=== PATIENT | female | born 1980 | race African-American/Black ===

== ENCOUNTER 2019-05-23 17:14 | Emergency (ER) | payer OTHER ==
[~2019-05-23] VITALS: Ht 170.2 cm; Wt 72.6 kg
[~2019-05-23 17:14] MED LIST: ADDERALL 10 MG10 MG; AMITRIPTYLINE H10 M1 PO; AMOXICILLIN 25250 M2 OR; AMOXICILLIN 50500 MG PO; DOXYCYCLINE 10100 MG PO; FLAGYL500 MG PO; FLEXERIL PO; HYDROCODON-ACE1 EAC5 PO; HYDROCODON-ACE1 EAC7 PO; IBUPROFEN 800800 M1 PO; LITHIUM CARBON150 MG PO; MEDROLDOSEPACK PO; MONONESSA1 EACH; NOHOMEMEDICATIONS; NORCO 5-325 TA1 EACH PO; NORFLEX100 MG PO; PERCOCET 5-3251 EACH; PREDNISONE 20 M20 M1 PO; ROBAXIN500 MG PO; SEROQUEL 50 MG50 M1; SEROQUEL XR150 MG PO; STRATTERA25 MG; STRATTERA60 MG PO; XANAX 0.5 MG0.5 M1 PO; XANAX XR1 MG PO
[2019-05-23] MEDS ORDERED: LIDOCAINE VISC100 ML SWISH&SPIT (17:27)
[2019-05-23] MEDS ORDERED: AMOXICILLIN 50500 M1 PO (17:27)
[2019-05-23 17:48] VITALS: BP 136/84
== END 2019-05-23 17:49 | disposition home or self-care (01) ==
LOC: M.ERS 17:14
DX: K04.7 Periapical abscess without sinus (principal); K00.7 Teething syndrome; Z90.49 Acquired absence of other specified parts of digestive tract

== ENCOUNTER 2020-08-26 11:45 | Emergency (ER) | payer OTHER ==
[~2020-08-26] VITALS: Ht 170.2 cm; Wt 70.3 kg
[~2020-08-26 11:45] MED LIST changes: +AMOXICILLIN 50500 M1 PO; +LIDOCAINE VISC100 ML SWISH&SPIT
[2020-08-26 12:22] VITALS: BP 133/98
== END 2020-08-26 12:23 | disposition home or self-care (01) ==
LOC: M.ERS 11:45
DX: Z20.828 Contact with and (suspected) exposure to other viral communicable diseases (principal); Z98.51 Tubal ligation status

== ENCOUNTER 2021-01-28 19:10 | Emergency (ER) | payer OTHER, MEDICAID ==
[~2021-01-28] VITALS: Ht 170.2 cm; Wt 73.5 kg
[2021-01-28] MEDS ORDERED: ANTI DEPRESSANT (19:42)
[2021-01-28] MEDS ORDERED: PREDNISONE50 MG PO (20:45)
[2021-01-28] MEDS ORDERED: AMOXICILLIN500 M1 PO (20:45)
[2021-01-28 20:58] VITALS: BP 126/69
== END 2021-01-28 20:59 | disposition home or self-care (01) ==
LOC: M.ERS 19:10
DX: H66.90 Otitis media, unspecified, unspecified ear (principal); J04.0 Acute laryngitis; H05.20 Unspecified exophthalmos; F17.210 Nicotine dependence, cigarettes, uncomplicated; Z98.890 Other specified postprocedural states; Z98.51 Tubal ligation status; Z79.899 Other long term (current) drug therapy

== ENCOUNTER 2021-10-11 23:39 | Emergency (ER) | payer OTHER, MEDICAID ==
[~2021-10-11] VITALS: Ht 170.2 cm; Wt 68.0 kg
[~2021-10-11 23:39] MED LIST changes: +AMOXICILLIN500 M1 PO; +ANTI DEPRESSANT; +PREDNISONE50 MG PO
[2021-10-12 00:21] LABS: INFLUENZA A ANTIGEN Negative (Negative); INFLUENZA B ANTIGEN Negative (Negative)
[2021-10-12 03:36] VITALS: BP 161/97
== END 2021-10-12 03:38 | disposition home or self-care (01) ==
LOC: M.ERS 23:39
PROVIDERS: Personal Emergency Response Attendant
DX: R05.9 Cough, unspecified (principal); Z20.822 Contact with and (suspected) exposure to COVID-19; Z90.49 Acquired absence of other specified parts of digestive tract; Z98.51 Tubal ligation status

== ENCOUNTER 2021-10-19 16:30 | Emergency (ER) | payer OTHER, MEDICAID ==
[~2021-10-19] VITALS: Ht 170.2 cm; Wt 69.0 kg
[2021-10-19] MEDS ORDERED: HYDRALAZINE 2525 M1 PO (17:16)
[2021-10-19] MEDS ORDERED: LEXAPRO 10 MG T10 MG PO (17:16)
[2021-10-19] MEDS ORDERED: MECLIZINE HCL25 M1 PO (19:11)
[2021-10-19 19:22] VITALS: BP 164/78
== END 2021-10-19 19:22 | disposition home or self-care (01) ==
LOC: M.ERS 16:30
DX: H81.10 Benign paroxysmal vertigo, unspecified ear (principal); I10 Essential (primary) hypertension; F12.90 Cannabis use, unspecified, uncomplicated; Z90.49 Acquired absence of other specified parts of digestive tract; Z98.890 Other specified postprocedural states; Z98.51 Tubal ligation status; Z79.899 Other long term (current) drug therapy

== ENCOUNTER 2021-11-21 14:00 | Inpatient (IN) | payer OTHER, MEDICAID ==
[~2021-11-21] VITALS: Ht 170.2 cm; Wt 70.0 kg
[~2021-11-21 14:00] MED LIST changes: +HYDRALAZINE 2525 M1 PO; +LEXAPRO 10 MG T10 MG PO; +MECLIZINE HCL25 M1 PO
[2021-11-21 14:05] VITALS: BP 148/88
[2021-11-21 16:09] LABS: ABSOLUTE BASOPHILS 0.1 thou/uL (0.0-0.2); ABSOLUTE EOSINOPHILS 0.1 thou/uL (0.0-0.7); ABSOLUTE MONOCYTES 0.4 thou/uL (0.0-1.2); ABSOLUTE NEUTROPHILS 2.2 thou/uL (1.6-8.1); BASOPHILS 1.7 %; EOSINOPHILS 2.1 %; HEMATOCRIT 34.3 % (37.0-47.0); HEMOGLOBIN 11.7 gm/dL (12.0-15.0); LYMPHOCYTES 42.5 %; MCH 27.6 pg (26.0-34.0); MCV 81.1 fL (80.0-100.0); MONOCYTES 8.2 %; MPV 9.6 fl. (7.2-11.1); NUCLEATED RBCS 0 /100WBC; PLATELET COUNT* 256 thou/uL (150-400); POLYS 45.5 %; RBC 4.23 mil/uL (4.20-5.00); RDW-CV 18.2 % (10.5-14.5); WBC 4.8 thou/uL (4.0-11.0)
[2021-11-21 16:20] LABS: CALCIUM 8.6 mg/dL (8.5-10.1); CREATININE 0.5 mg/dL (0.6-1.3)
[2021-11-21 16:25] LABS: ALBUMIN 2.7 g/dL (3.4-5.0); TOTAL BILIRUBIN 0.6 mg/dL (<0.1-1.0); TOTAL PROTEIN 6.3 g/dL (6.4-8.2)
[2021-11-21 16:32] LABS: POTASSIUM 2.7 mmol/L (3.5-5.1)
[2021-11-21 17:57] VITALS: BP 153/85
[2021-11-21 21:38] VITALS: BP 148/74
[2021-11-22] VITALS (7 sets, daily range): BP systolic 150–168; BP diastolic 84–110
--- NOTE | 2021-11-22 08:15 | EKG ---
[place] [address] ELECTROCARDIOGRAM REPORT Name: STU GONZALEZ Room: [place] [address] ADM IN [facility].#: [id number] Admission: 11/21/21 Attend Phys: Mahsa Anthony Discharge: Date of : 76 Date of Service: 11/21/21 1658 Report #: [id number] THIS REPORT FOR: //name// [facility] ED Test Date: 2021-11-21 Test Time: 16:58:31 Pat Name: STU GONZALEZ Department: Room: [facility] Gender: F [place]aker Pipe: [place] : 1980 Requested By: Cassandra Luis Order Number: [id number] MD: Jensen Michael Measurements Intervals [place] Rate: 92 P: 71 GA: 135 QRS: 73 QRSD: 92 T: QT: 458 QTc: 567 Interpretive Statements Sinus rhythm Left atrial enlargement Nonspecific repol abnormality, diffuse leads Prolonged QT interval Baseline wander in lead(s) II,V1,V2,V4,V5,V6 Compared to ECG 10/09/2014 22:52:14 Atrial abnormality now present Early repolarization now present Prolonged QT interval now present Electronically Signed On 11-22-2021 8:15:39 LOGISTICS OPERATIONS DIRECTOR by Jensen Michael [email or web address] <ELECTRONICALLY SIGNED> By: Jensen Michael MD, [facility] 11/22/21 0815 57 57 Jensen Michael MD, [facility] /EPI
--- NOTE | 2021-11-22 17:27 | NUR ---
RECIEVED REPORT FROM RICH RN IN ER OF EXPECTED ADMSSION AT 1615- DX: PNA, HYPOKALEMIA- PT ARRIVED TO UNIT VIA BED AT 1630- BREAKER BOSS PLACED ORDERED, TRACING ST- PT A&O X4- NOTED TO BE ANXIOUS AND IMPULSIVE, PT NOTED TO HAVE HARD TIME SITTING STILL, UP WALKING IN ROOM AND HALLWAY- CONT OF B/B- UP AD-BALJIT- FINE CRACKLES WITH NOTED WHEEZES- REPORTED PRODUCTIVE COUGH- VSS, O2 SAT 96% ON RA- ABD SOFT/FLAT/NON-TENDER, BS X 4 QUADS- PT REPORTS BM TODAY DIARRHEA- IV NOTED TO RIGHT AC INTACT, IVF INFUSSING PRESCRIBED- PT DENIES ANY OPEN SOARS/WOUNDS- DENIES ANY C/O PAIN-CALL LIGTH AND PERSONAL BELONGINGS WITH IN REACH- PT MAKES NEEDS KNOWN- ALL NEEDS MET AT THIS TIME
[2021-11-22] MEDS ORDERED: HYDROXYZINE HCL25 M2 (18:32)
[2021-11-22 19:21] LABS: AMP/METHAMP Negative (Negative); BARBITURATES Negative (Negative); BENZODIAZEPINES Negative (Negative); COCAINE Negative (Negative); METHADONE Negative (Negative); OPIATES Negative (Negative); PCP Negative (Negative); THC Negative (Negative)
[2021-11-23 02:38] VITALS: BP 168/93
--- NOTE | 2021-11-23 04:57 | NUR ---
PATIENT SLEPT WELL DURING THIS SHIFT. PT IS UP AD BALJIT IN ROOM; VOIDS YELLOW URINE. PT DENIES PAIN/NAUSEA. PT IS ON ROOM AIR AND HAS BREATHING TREATMENTS. LUNG SOUNDS DIMINISHED. PT WITH FLUIDS INFUSING PER DR ORDER. 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 FREQUENTLY USED ITEMS WITHIN REACH. SIDERAILS UPX2. WILL CONTINUE TO MONITOR.
[2021-11-23 05:22] VITALS: BP 153/88
[2021-11-23 08:00] VITALS: BP 188/109
--- NOTE | 2021-11-23 10:15 | NUR ---
CM ASSESSMENT: PT A&O, INDEPENDENT WITH ADL'S, AND ACTIVE. PT USES 0 DME. PT HAS 0 HX OF HH OR SNF. NO CM D/C PLANNING NEEDS ANTICIPATED AT THIS TIME. CM WILL REMAIN AVAILABLE TO ASSIST AND FOLLOW NEEDED.
--- NOTE | 2021-11-23 11:27 | NUR ---
Nutrition: Pt admitted with hypokalemia. Consult received for wt loss. Pt stated she lost wt "awhile back" and has been weighing ~154# for awhile now. She had lost the wt d/t stress and dentition issues. She is eating meals well, Regular diet. H/o HTN, meth use. She said she lives with her mother and her mother encourages her to eat a balanced diet. Recommended MVI use. Current wt: 154#. At this time, consider mild nutrition risk.
[2021-11-23 12:09] VITALS: BP 154/96
[2021-11-23] MEDS ORDERED: VITAMIN D325 MC2 PO (13:26)
[2021-11-23] MEDS ORDERED: CEFDINIR300 MG PO (13:26)
[2021-11-23] MEDS ORDERED: PROAIR HFA8.5 GM INH (13:26)
[2021-11-23] MEDS ORDERED: NORVASC5 MG PO (13:26)
[2021-11-23 13:28] VITALS: BP 154/96
--- NOTE | 2021-11-23 14:55 | NUR ---
ASSUMED PT CARE AT 0730, PT AOX4, NO C/O PAIN, JUST WANTS TO GO HOME. PT WORKED W/ DR RUBIO AND DC ORDERS RECEIVED. IV AND TRANSPORTATION SUPERINTENDENT REMOVED. PT DC'D BY WALKING - STATES SHE DOESN'T NEED A WC - W/ NURSING STAFF AND ALL PAPERWORK AND PERSONAL BELONGINGS TO [facility] AT [address]
== END 2021-11-23 14:20 | disposition home or self-care (01) | DRG 195 ==
LOC: M.ERS 14:00 → M.2W 17:22 → M.TBA-ER 17:22 → M.2W 11-22 16:29
PROVIDERS: Student in an Organized Health Care Education/Training Program; ADMIT Internal Medicine; ATTEND Internal Medicine
DX: J15.9 Unspecified bacterial pneumonia (principal); I10 Essential (primary) hypertension; E87.6 Hypokalemia; Z20.822 Contact with and (suspected) exposure to COVID-19